=== PATIENT | female | born 1980 | race African-American/Black ===

== ENCOUNTER 2018-08-20 18:30 | Observation (INO) | payer MEDICAID ==
[~2018-08-20] VITALS: Ht 167.6 cm; Wt 111.1 kg
[2018-08-20] MEDS ORDERED: FERR325T6 PO (18:45)
[2018-08-20] MEDS ORDERED: PNV1TABL50 MT (18:45)
[2018-08-20] MEDS ORDERED: DEXT 5%/LACTATED RINGERS 1,000 ML IV SCH (19:38)
[2018-08-20 20:08] LABS: CLARITY URINE CLOUDY (CLEAR); COLOR URINE YELLOW (YELLOW); KETONES URINE TRACE (NEGATIVE); LEUKOCYTE ESTERASE URINE NEGATIVE (NEGATIVE); NITRITE URINE NEGATIVE (NEGATIVE); OCCULT BLOOD URINE NEGATIVE (NEGATIVE); PH URINE 6.5 (4.5-8.0); PROTEIN URINE TRACE (NEGATIVE); SPECIFIC GRAVITY URINE 1.026 (1.005-1.030); UROBILINOGEN URINE 0.2 E.U./dL (0.2-1.0)
[2018-08-20 20:11] LABS: CHLORIDE 108 mEq/L (98-107)
[2018-08-20] MEDS ORDERED: ONDANSETRON HCL 4MG/2ML INJ IV NR (20:45)
== END 2018-08-20 21:20 | disposition home or self-care (01) ==
LOC: L&D 18:30
PROVIDERS: ADMIT Obstetrics & Gynecology; ATTEND Obstetrics & Gynecology
DX: O21.2 Late vomiting of pregnancy (principal); O62.9 Abnormality of forces of labor, unspecified; O26.893 Other specified pregnancy related conditions, third trimester; R19.7 Diarrhea, unspecified; O09.523 Supervision of elderly multigravida, third trimester; Z3A.36 36 weeks gestation of pregnancy
CPT/HCPCS: 36415; 80053; 81003; 96374; 99281; G0378; J2405; 96360; 96361